=== PATIENT | male | born 1990 | race Caucasian/White ===

== ENCOUNTER 2018-04-25 14:39 | Emergency (ER) | payer MEDICAID, SELFPAY ==
[2018-04-25 14:55] VITALS: BP 123/64; PULSE 89; RESP 18; TEMP 37.3; O2SAT 99
--- NOTE | 2018-04-25 15:04 | DI.RAD.S_ITS ---
PROCEDURE: XR WRIST LT MIN 3V INDICATIONS: injured left wrist TECHNIQUE: 4 views of the wrist were acquired. COMPARISON: None. FINDINGS: Bones: Oblique left distal radial metaphysis fracture with intra-articular extension. No significant displacement or angulation. Scaphoid view: Scaphoid appears intact. Soft tissues: Soft tissue swelling overlying the left wrist. IMPRESSION: Acute left distal radial intra-articular fracture. Dictated by: Christopher Fay M.D. on 04/25/2018 at 15:26 Approved by: Christopher Fay M.D. on 04/25/2018 at 15:28
--- NOTE | 2018-04-25 15:32 | ED.UPPEXIN ---
HPI - Extremity Injury (Upper) General Chief Complaint: Extremity Injury, Upper Stated Complaint: left wrist pain Time Seen by Provider: 04/25/18 15:00 Source: patient Mode of arrival: ambulatory Limitations: no limitations History of Present Illness HPI narrative: 28M complains of L wrsit pain after falling while skateboarding yesterday. He has worsening pain with range of motion and improvement with rest. He denies other injury. He denies any numbness, tingling or weakness complaint: injury to: left Onset (ago): day(s) Other injuries: none Handedness: right Place: outdoors Severity: moderate Relieving factors: rest Exacerbating factors: movement of extremity Context: fall Associated symptoms: denies other symptoms Related Data Previous Rx's Medication Instructions Recorded hydrocodone-acetaminophen 1 tab PO Q4-6H PRN #14 tab 04/25/18 Allergies Allergy/AdvReac Type Severity Reaction Status Date / Time No Known Drug Allergies Allergy Verified 04/25/18 15:53 Review of Systems Review of Systems All systems reviewed & are unremarkable except as noted in HPI and below Constitutional Denies chills, Denies fever(s), Denies lethargy and Denies weakness Eyes Denies change in vision, Denies eye discharge, Denies irritation and Denies loss of vision ENT Ears, Nose, Mouth, and Throat: Denies change in voice, Denies neck pain and Denies sore throat Cardiovascular Denies chest pain, Denies irregular heart rhythm, Denies lightheadedness, Denies palpitations, Denies dyspnea, Denies dyspnea on exertion and Denies orthopnea Respiratory Denies cough, Denies dyspnea, Denies dyspnea on exertion and Denies wheezing Gastrointestinal Gastrointestinal: Denies abdominal pain, Denies change in bowel habits, Denies diarrhea, Denies nausea and Denies vomiting Genitourinary Denies hematuria, Denies flank pain, Denies urinary incontinence and Denies urinary urgency Musculoskeletal Reports limited range of motion and Denies neck pain Integumentary/Breasts Denies pruritus, Denies erythema, Denies rash and Denies wounds Neurologic Denies confusion, Denies loss of vision and Denies weakness Psychiatric Denies anxiety, Denies confusion, Denies depression, Denies homicidal ideation and Denies suicidal ideation Endocrine Denies palpitations Hematologic/Lymphatic Denies easy bruising Allergic/Immunologic Denies wheezing [facility] Social History Smoking Status: Former smoker Exam Narrative Exam Narrative: GEN: AOx3 and in mild distress EYES: Pupils are equal, round, and reactive to light and accommodation. Extraoccular muscles are intact bilaterally. There is no subconjunctival hemorrhage or exudate. CHEST: Lungs are clear to auscultation bilaterally and free of wheezes, rales, or rhonchi. Heart rate is regular rhythm, there are no murmurs, clicks, rubs, or gallops. There is no chest wall tenderness. ABD: Abdomen is soft and nontender. There is no guarding or rebound. Bowel sounds are normal in all 4 quadrants. There is no mass or organomegaly. EXT: Pain to palpation of left distal radius. Closed, isolated and neurovascularly intact. SKIN: Warm, pink, and dry. No erythema or rash Initial Vital Signs Initial Vital Signs: Vital Signs Temperature 99.2 F 04/25/18 14:55 Pulse Rate 89 04/25/18 14:55 Respiratory Rate 18 04/25/18 14:55 Blood Pressure 123/64 H 04/25/18 14:55 Pulse Oximetry 99 04/25/18 14:55 Procedures Orthopedic Splinting/Casting Injury #1: Side: left Upper Extremity Injury Location: forearm Upper Extremity Immobilizer: sling/shoulder immobilizer and sugar tong splint Course Orders Ordered: ED Orders 04/25/18 15:04 XR wrist LT min 3V Stat Vital Signs - 8 hr 04/25/18 14:55 04/25/18 16:04 Temperature 99.2 F Pulse Rate 89 85 Respiratory Rate 18 18 Blood Pressure 123/64 H 132/79 H Pulse Oximetry 99 98 Discharge Plan Departure Patient Disposition: Home, Self-Care Clinical Impression: Fracture of wrist Discharge Date/Time: 04/25/18 16:04 Interventions: ED Discharge Assessment Last Done: 04/25/18 16:04 Instructions: DI for Distal Radius Fracture Activity Restrictions/Additional Instructions: *You have been diagnosed with [ nondisplaced left distal radius fracture ] *What to do: *Take medications as directed. You have been prescribed narcotic medications. While on these medications you cannot drive or operate heavy machinery. Additionally you cannot sign legal documents or perform any duties such as this. 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 Please understand that we cannot provide further refills of narcotics or controlled substances through the ED and your pain management will need to be through your Primary Care Provider *Follow up with scheduled [facility], call for an appointment. Let them know you were seen in the Emergency Department and that we ask that you be seen in follow up *Return to ER if you should have any new, worsening or concerning symptoms, such as [increasing pain, numbness, tingling or other bothersome symptoms in her wrist ] Prescriptions: New hydrocodone-acetaminophen 5-325 mg tablet 1 tab PO Q4-6H PRN (Reason: pain) Qty: 14 RF: 0 Referrals: Cleo Montenegro MD [Physician] -
[2018-04-25 16:04] VITALS: BP 132/79; PULSE 85; RESP 18; O2SAT 98
--- NOTE | 2018-04-25 16:07 | PC.NURSE ---
splint verified by dr. basilio.
--- NOTE | 2018-04-25 18:10 | ED_ITS ---
HPI - Extremity Injury (Upper) General Chief Complaint: Extremity Injury, Upper Stated Complaint: left wrist pain Time Seen by Provider: 04/25/18 15:00 Source: patient Mode of arrival: ambulatory Limitations: no limitations History of Present Illness HPI narrative: 28M complains of L wrsit pain after falling while skateboarding yesterday. He has worsening pain with range of motion and improvement with rest. He denies other injury. He denies any numbness, tingling or weakness complaint: injury to: left Onset (ago): day(s) Other injuries: none Handedness: right Place: outdoors Severity: moderate Relieving factors: rest Exacerbating factors: movement of extremity Context: fall Associated symptoms: denies other symptoms Related Data Previous Rx's Medication Instructions Recorded hydrocodone-acetaminophen 1 tab PO Q4-6H PRN #14 tab 04/25/18 Allergies Allergy/AdvReac Type Severity Reaction Status Date / Time No Known Drug Allergies Allergy Verified 04/25/18 15:53 Review of Systems Review of Systems All systems reviewed & are unremarkable except as noted in HPI and below Constitutional Denies chills, Denies fever(s), Denies lethargy and Denies weakness Eyes Denies change in vision, Denies eye discharge, Denies irritation and Denies loss of vision ENT Ears, Nose, Mouth, and Throat: Denies change in voice, Denies neck pain and Denies sore throat Cardiovascular Denies chest pain, Denies irregular heart rhythm, Denies lightheadedness, Denies palpitations, Denies dyspnea, Denies dyspnea on exertion and Denies orthopnea Respiratory Denies cough, Denies dyspnea, Denies dyspnea on exertion and Denies wheezing Gastrointestinal Gastrointestinal: Denies abdominal pain, Denies change in bowel habits, Denies diarrhea, Denies nausea and Denies vomiting Genitourinary Denies hematuria, Denies flank pain, Denies urinary incontinence and Denies urinary urgency Musculoskeletal Reports limited range of motion and Denies neck pain Integumentary/Breasts Denies pruritus, Denies erythema, Denies rash and Denies wounds Neurologic Denies confusion, Denies loss of vision and Denies weakness Psychiatric Denies anxiety, Denies confusion, Denies depression, Denies homicidal ideation and Denies suicidal ideation Endocrine Denies palpitations Hematologic/Lymphatic Denies easy bruising Allergic/Immunologic Denies wheezing [facility] Social History Smoking Status: Former smoker Exam Narrative Exam Narrative: GEN: AOx3 and in mild distress EYES: Pupils are equal, round, and reactive to light and accommodation. Extraoccular muscles are intact bilaterally. There is no subconjunctival hemorrhage or exudate. CHEST: Lungs are clear to auscultation bilaterally and free of wheezes, rales, or rhonchi. Heart rate is regular rhythm, there are no murmurs, clicks, rubs, or gallops. There is no chest wall tenderness. ABD: Abdomen is soft and nontender. There is no guarding or rebound. Bowel sounds are normal in all 4 quadrants. There is no mass or organomegaly. EXT: Pain to palpation of left distal radius. Closed, isolated and neurovascularly intact. SKIN: Warm, pink, and dry. No erythema or rash Initial Vital Signs Initial Vital Signs: Vital Signs Temperature 99.2 F 04/25/18 14:55 Pulse Rate 89 04/25/18 14:55 Respiratory Rate 18 04/25/18 14:55 Blood Pressure 123/64 H 04/25/18 14:55 Pulse Oximetry 99 04/25/18 14:55 Procedures Orthopedic Splinting/Casting Injury #1: Side: left Upper Extremity Injury Location: forearm Upper Extremity Immobilizer: sling/shoulder immobilizer and sugar tong splint Course Orders Ordered: ED Orders 04/25/18 15:04 XR wrist LT min 3V Stat Vital Signs - 8 hr 04/25/18 14:55 04/25/18 16:04 Temperature 99.2 F Pulse Rate 89 85 Respiratory Rate 18 18 Blood Pressure 123/64 H 132/79 H Pulse Oximetry 99 98 Discharge Plan Departure Patient Disposition: Home, Self-Care Clinical Impression: Fracture of wrist Discharge Date/Time: 04/25/18 16:04 Interventions: ED Discharge Assessment Last Done: 04/25/18 16:04 Instructions: DI for Distal Radius Fracture Activity Restrictions/Additional Instructions: *You have been diagnosed with [ nondisplaced left distal radius fracture ] *What to do: *Take medications as directed. You have been prescribed narcotic medications. While on these medications you cannot drive or operate heavy machinery. Additionally you cannot sign legal documents or perform any duties such as this. 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 Please understand that we cannot provide further refills of narcotics or controlled substances through the ED and your pain management will need to be through your Primary Care Provider *Follow up with scheduled [facility], call for an appointment. Let them know you were seen in the Emergency Department and that we ask that you be seen in follow up *Return to ER if you should have any new, worsening or concerning symptoms , such as [increasing pain, numbness, tingling or other bothersome symptoms in her wrist ] Prescriptions: New hydrocodone-acetaminophen 5-325 mg tablet 1 tab PO Q4-6H PRN (Reason: pain) Qty: 14 RF: 0 Referrals: Cleo Montenegro MD [Physician] -
== END 2018-04-25 16:04 | disposition home or self-care (01) ==
PROVIDERS: Emergency Provider Emergency Medicine
DX: S62.102A Fracture of unspecified carpal bone, left wrist, initial encounter for closed fracture (principal); V00.131A Fall from skateboard, initial encounter; Y93.51 Activity, roller skating (inline) and skateboarding
CPT/HCPCS: 29125; 29240; 73110; 99282; 99283

== ENCOUNTER 2024-11-18 03:58 | Emergency (ER) | payer OTHER, SELFPAY ==
[2024-11-18] VITALS (13 sets, daily range): BP systolic 112–141; BP diastolic 66–92; PULSE 52–69; RESP 17–18; TEMP 37.3; O2SAT 92–100; BMI 22.6
--- NOTE | 2024-11-18 04:03 | ED_ITS ---
HPI - General Adult <Dylan Toledo MD - Last Filed: 11/18/24 16:32> General Chief complaint: Headache Stated complaint: head pain Time Seen by Provider: 11/18/24 03:59 History of Present Illness HPI narrative: 34-year-old male with history of skateboarding related head injury on Thursday11/11/2024 in [place], had imaging of the brain was intubated and was transferred to [facility], by ground instead of air ambulance due to poor weather, while at [facility] had continued pain and seemed unsatisfied with care there due to his perception a poor pain control, left against medical advice, unclear if he had any surgical interventions besides scalp wound closure. He has no primary care provider, has ongoing headache pain not responsive to Tylenol and Motrin medications. He arrived by EMS with headache pain this morning, given IV fentanyl 100 mcg during transport. Complains of left-sided predominant headache pain. No new injuries recalled. Related Data Previous Rx's Medication Instructions Recorded hydrocodone 5 mg-acetaminophen 325 1 tab PO Q4-6H PRN pain #14 tabs 04/25/18 mg tablet naproxen 500 mg tablet (Naprosyn) 500 mg PO BID #60 tabs 11/18/24 oxycodone 5 mg tablet 5 mg PO Q6H PRN pain #30 tabs 11/18/24 valproic acid 250 mg capsule 500 mg (2 x 250 mg) PO TID #180 11/18/24 caps Allergies Allergy/AdvReac Type Severity Reaction Status Date / Time bee venom protein (honey bee) Allergy Verified 11/18/24 04:08 Patient History <Dylan Toledo MD - Last Filed: 11/18/24 16:32> Social History Smoking Status: Former smoker Smoking Status: Former smoker alcohol intake frequency: holidays/special occasions only Exam <Dylan Toledo MD - Last Filed: 11/18/24 16:32> Narrative Exam Narrative: GENERAL: Well-developed patient, in mild distress. HEAD: Occipital scalp laceration leonides x3 intact, no crepitance or discharge or redness around the wound. EYES: Pupils equal round and reactive. Extraocular motions intact. No scleral icterus. No injection or drainage. ENT: Nose without bleeding, purulent drainage. Throat without erythema, tonsillar hypertrophy or exudate. Airway patent. NECK: Trachea midline. Non tender CARDIOVASCULAR: Regular rate and rhythm without murmurs, gallops, or rubs. RESPIRATORY: Clear to auscultation. Breath sounds equal bilaterally. No wheezes, rales, or rhonchi. GASTROINTESTINAL: Abdomen soft, non-tender, nondistended. EXTREMITIES: No edema or joint tenderness. BACK: Nontender without deformity or crepitance. No flank tenderness. NEURO: AOx3. No facial droop, pupils equal, clear speech, control secretions well, conjugate gaze. Motor 5/5 upper extremities. Motor 5/5 lower extremities. [id number] testing right and left equal and brisk. Intact light touch sensation face arm leg both sides. Gait not yet tested, but reportedly has been ambulatory since discharge home. SKIN: No rash or erythema of visible areas Initial Vital Signs Initial Vital Signs: Vital Signs Pulse Rate 66 11/18/24 04:04 Pulse Oximetry 98 11/18/24 04:04 <Karina Hi MD - Last Filed: 11/18/24 11:04> Initial Vital Signs Initial Vital Signs: Vital Signs Pulse Rate 66 11/18/24 04:04 Pulse Oximetry 98 11/18/24 04:04 Course <Dylan Toledo MD - Last Filed: 11/18/24 16:32> Orders Ordered: Discontinued Medications Droperidol (Droperidol 2.5 Mg/Ml Vial) 0.625 mg IV NOW ONE Stop: 11/18/24 08:42 Last Admin: 11/18/24 08:50 Dose: 0.625 mg Documented By: MPO Hydromorphone HCl (Hydromorphone 0.5 Mg Inj) 0.5 mg IV NOW ONE Stop: 11/18/24 04:58 Last Admin: 11/18/24 05:05 Dose: 0.5 mg Documented By: HNG Hydromorphone HCl (Hydromorphone 0.5 Mg Inj) 0.5 mg IV NOW ONE Stop: 11/18/24 08:42 Last Admin: 11/18/24 08:50 Dose: 0.5 mg Documented By: MPO Valproic Acid 1,500 mg/ (Dextrose) 65 mls @ 65 mls/hr IV NOW ONE Stop: 11/18/24 08:21 Last Infusion: 11/18/24 10:03 Dose: Infused Documented By: Admin: 11/18/24 08:50 Dose: 65 mls/hr Documented By: ISHAN Sodium Chloride (Normal Saline 0.9%) 1,000 mls @ 1,000 mls/hr IV BOLUS ONE Stop: 11/18/24 09:40 Last Infusion: 11/18/24 10:03 Dose: Infused Documented By: Admin: 11/18/24 08:51 Dose: 1,000 mls/hr Documented By: ISHAN Ketorolac Tromethamine (Ketorolac 30 Mg/Ml Vial) 15 mg IV NOW ONE Stop: 11/18/24 04:19 Last Admin: 11/18/24 04:34 Dose: 15 mg Documented By: SHELIA Ondansetron HCl (Ondansetron 4 Mg/2 Ml Inj) 4 mg IV NOW ONE Stop: 11/18/24 04:58 Last Admin: 11/18/24 05:05 Dose: 4 mg Documented By: BRISA Oxycodone/Acetaminophen (Oxycodone/Acetaminophen 5/325 Tablet) 2 tab PO NOW ONE Stop: 11/18/24 09:43 Last Admin: 11/18/24 09:49 Dose: 2 tab Documented By: ISHAN Vital Signs Vital signs: Vital Signs - 8 hr 11/18/24 04:04 11/18/24 04:09 11/18/24 04:33 Temperature 99.2 F Pulse Rate 66 63 58 L Respiratory Rate 18 Blood Pressure 141/92 H Pulse Oximetry 98 99 100 Oxygen Delivery Method Room Air 11/18/24 04:34 11/18/24 04:34 11/18/24 05:00 Temperature Pulse Rate 58 L 57 L Respiratory Rate Blood Pressure 139/71 Pulse Oximetry 99 99 Oxygen Delivery Method 11/18/24 05:09 11/18/24 05:09 11/18/24 05:30 Temperature Pulse Rate 57 L Respiratory Rate Blood Pressure 119/74 122/74 Pulse Oximetry 99 Oxygen Delivery Method Room Air 11/18/24 05:30 11/18/24 06:00 11/18/24 06:00 Temperature Pulse Rate 65 69 Respiratory Rate 17 Blood Pressure 123/76 Pulse Oximetry 99 99 Oxygen Delivery Method Room Air 11/18/24 06:30 11/18/24 06:30 11/18/24 07:00 Temperature Pulse Rate 57 L 53 L Respiratory Rate Blood Pressure 112/66 Pulse Oximetry 98 93 Oxygen Delivery Method 11/18/24 07:01 11/18/24 07:01 11/18/24 07:30 Temperature Pulse Rate 53 L 52 L Respiratory Rate Blood Pressure 129/68 Pulse Oximetry 97 95 Oxygen Delivery Method 11/18/24 07:30 11/18/24 08:00 11/18/24 08:00 Temperature Pulse Rate 53 L Respiratory Rate Blood Pressure 123/80 129/69 Pulse Oximetry 92 Oxygen Delivery Method <Karina Hi MD - Last Filed: 11/18/24 11:04> Orders Ordered: Discontinued Medications Droperidol (Droperidol 2.5 Mg/Ml Vial) 0.625 mg IV NOW ONE Stop: 11/18/24 08:42 Last Admin: 11/18/24 08:50 Dose: 0.625 mg Documented By: ISHAN Hydromorphone HCl (Hydromorphone 0.5 Mg Inj) 0.5 mg IV NOW ONE Stop: 11/18/24 04:58 Last Admin: 11/18/24 05:05 Dose: 0.5 mg Documented By: BRISA Hydromorphone HCl (Hydromorphone 0.5 Mg Inj) 0.5 mg IV NOW ONE Stop: 11/18/24 08:42 Last Admin: 11/18/24 08:50 Dose: 0.5 mg Documented By: ISHAN Valproic Acid 1,500 mg/ (Dextrose) 65 mls @ 65 mls/hr IV NOW ONE Stop: 11/18/24 08:21 Last Infusion: 11/18/24 10:03 Dose: Infused Documented By: Admin: 11/18/24 08:50 Dose: 65 mls/hr Documented By: ISHAN Sodium Chloride (Normal Saline 0.9%) 1,000 mls @ 1,000 mls/hr IV BOLUS ONE Stop: 11/18/24 09:40 Last Infusion: 11/18/24 10:03 Dose: Infused Documented By: Admin: 11/18/24 08:51 Dose: 1,000 mls/hr Documented By: ISHAN Ketorolac Tromethamine (Ketorolac 30 Mg/Ml Vial) 15 mg IV NOW ONE Stop: 11/18/24 04:19 Last Admin: 11/18/24 04:34 Dose: 15 mg Documented By: SHELIA Ondansetron HCl (Ondansetron 4 Mg/2 Ml Inj) 4 mg IV NOW ONE Stop: 11/18/24 04:58 Last Admin: 11/18/24 05:05 Dose: 4 mg Documented By: BRISA Oxycodone/Acetaminophen (Oxycodone/Acetaminophen 5/325 Tablet) 2 tab PO NOW ONE Stop: 11/18/24 09:43 Last Admin: 11/18/24 09:49 Dose: 2 tab Documented By: ISHAN Vital Signs Vital signs: Vital Signs - 8 hr 11/18/24 04:04 11/18/24 04:09 11/18/24 04:33 Temperature 99.2 F Pulse Rate 66 63 58 L Respiratory Rate 18 Blood Pressure 141/92 H Pulse Oximetry 98 99 100 Oxygen Delivery Method Room Air 11/18/24 04:34 11/18/24 04:34 11/18/24 05:00 Temperature Pulse Rate 58 L 57 L Respiratory Rate Blood Pressure 139/71 Pulse Oximetry 99 99 Oxygen Delivery Method 11/18/24 05:09 11/18/24 05:09 11/18/24 05:30 Temperature Pulse Rate 57 L Respiratory Rate Blood Pressure 119/74 122/74 Pulse Oximetry 99 Oxygen Delivery Method Room Air 11/18/24 05:30 11/18/24 06:00 11/18/24 06:00 Temperature Pulse Rate 65 69 Respiratory Rate 17 Blood Pressure 123/76 Pulse Oximetry 99 99 Oxygen Delivery Method Room Air 11/18/24 06:30 11/18/24 06:30 11/18/24 07:00 Temperature Pulse Rate 57 L 53 L Respiratory Rate Blood Pressure 112/66 Pulse Oximetry 98 93 Oxygen Delivery Method 11/18/24 07:01 11/18/24 07:01 11/18/24 07:30 Temperature Pulse Rate 53 L 52 L Respiratory Rate Blood Pressure 129/68 Pulse Oximetry 97 95 Oxygen Delivery Method 11/18/24 07:30 11/18/24 08:00 11/18/24 08:00 Temperature Pulse Rate 53 L Respiratory Rate Blood Pressure 123/80 129/69 Pulse Oximetry 92 Oxygen Delivery Method Medical Decision Making <Dylan Toledo MD - Last Filed: 11/18/24 16:32> Lab Data Lab results reviewed: Yes I reviewed the patient's lab results. Lab results narrative: White blood cell count 86900, hemoglobin 13.4, platelets adequate. Basic metabolic panel unremarkable, glucose 88 noted. Liver functions normal. 11/18/24 04:03 11/18/24 04:03 Labs: Lab Results 11/18/24 Range/Units 04:03 WBC 13.7 H (4.5-11.0) X10^3/uL RBC 4.29 L (4.5-5.9) X10^6/uL Hgb 13.4 L (13.5-17.5) g/dL Hct 38.9 L (41-53) % MCV 90.7 (80-100) fL MCH 31.4 (26-34) PG MCHC 34.6 (30-36) % RDW 12.9 (11.6-14.8) % Plt Count 169 (150-400) X10^3/uL Neut % (Auto) 73.4 (50-75) % Lymph % (Auto) 18.6 L (25-40) % Rice % (Auto) 6.3 (3-14) % Eos % (Auto) 1.2 L (2-4) % Baso % (Auto) 0.5 (0-2) % Neut # (Auto) 67796 H (6926-2394) /uL Lymph # (Auto) 2600 (6898-9524) /uL Rice # (Auto) 900 (0-900) /uL Eos # (Auto) 200 (0-450) /uL Baso # (Auto) 100 (0-100) /uL Sodium 136 L (137-145) mmol/L Potassium 3.6 (3.4-5.1) mmol/L Chloride 100 (98-107) mmol/L Carbon Dioxide 27 (22-32) mmol/L BUN 12 (9-20) mg/dL Creatinine 0.81 (0.66-1.25) mg/dL Estimated GFR > 60 (>60) mL/min BUN/Creatinine Ratio 14.8 (6-22) Glucose 88 (70-100) mg/dL Calcium 9.1 (8.4-10.2) mg/dL Total Bilirubin 0.4 (0.2-1.3) mg/dL AST 21 (17-59) IU/L ALT 25 (<50) IU/L Alkaline Phosphatase 38 (38-126) U/L Total Protein 7.0 (6.3-8.2) g/dL Albumin 4.4 (3.5-5.0) g/dL Globulin 2.6 (1.7-4.1) g/dL Albumin/Globulin Ratio 1.7 (1.0-2.8) MDM Narrative Medical decision making narrative: 34-year-old male now 7 days after skateboard injury with subdural hematoma and subarachnoid hemorrhage, in context of alcohol use, on 11/12/2024 at [facility] in [facility] was intubated and transferred to [facility]. Patient believes he left against medical advice on Thursday11/16/2024, did not feel like he was being treated well there, left without discharge instruction or information, does not recall any new medications, had leonides from the initial treating facility they are still in the back of his head now one-week ago. Has global headache. No re-injury. No focal weakness. CT head scan ordered, patient seems cooperative to do this scan. He did allow blood draw, labs sent. Sodium [address] head without contrast. Impressions: ?Subarachnoid hemorrhage along the falx cerebri and tracking along the bilateral tentorium, [id number]. It measures approximately 3 mm in greatest dimension along the falx in the right tentorium, submillimeter along the left tentorium. Multiple punctate foci of high attenuation blood products seen along the anterior aspect of the right frontal lobe with surrounding edema reflecting small areas of contusion or hemorrhage. This is probably related to a contrecoup injury given the high left scalp soft tissue injury. The associated edema causes a small amount of leftward midline shift of to 3 mm. A small amount of high attenuation products interdigitating the in the sulci at this region as well as in the sylvian fissure reflecting a small amount of associated subarachnoid hemorrhage. No hydrocephalus.? See teleradiology report. No mention of any comparison studies. Occipital scalp laceration site leonides removed intact by nursing x3. 0515, Case discussed with [facility] nursing intake, no records so far from [facility] prevously requested, per intake nurse patient apparently extubated himself shortly prior to arrival to their facility, was not cooperative per their progress notes with repeated lab draws, no neurosurgical interventions. He had low sodium level and was advised to have salt pills on discharge, also was to be prescribed Keppra for one-week at time of discharge, but precipitously left their facility without any discharge prescription medications. Scalp laceration leonides were to be removed on 11/25/2024. Intake nurse aware of new CT scan here, will consult with Neurosurgery to review current scan in comparison with their scans, and any new recommendations, and recommendations for follow up. Patient given [facility] PCP contact card information to establish with an [facility] primary care provider, to call [facility] at [phone]. Or follow-up with PCP in [facility] area where he might be staying with family. 0700, still awaiting call back from [facility] Neurosurgery for comparison interpretation and recommendations. Signed out to [facility] ED shift physician Dr. Hi 0700 Dr Hi, care is assumed patient is independently evaluated. I had the opportunity to see this gentleman with his initial injury and transfer to [facility]. He is dramatically improved. His CT scan is also significantly improved. I chatted with the neurosurgeon, Dr. Rodriguez who cared for him at [facility]. She to agree that the repeat CT scan does not show new findings. Recommended at least a week of antiseizure medications. Offered to re-evaluate him if he wanted to come to [place]. Discussed all the findings with the patient. Discussed options for outpatient pain control. Additional social history, patient works at the [employer] and undergoes regular drug testing for work. He rarely drinks alcohol. He has not had issues with addiction Will load him on valproic acid for seizure control and see if there was any secondary benefit to headache control/prevention. Prescription for 500 mg 3 times a day we will be sent to [facility] in [place] with recommendation that he take it for at least a week, prescription for a month with 1 refill so that he can continue in his long as he is continuing to have headaches and discontinuous headaches improve as his brain swelling and contusion improves. We will recommend scheduled Naprosyn b.i.d., Tylenol as needed through the day with a short course of oxycodone for severe pain along with cautions and concerns. will also be given information on postconcussion syndrome. We will recommend follow up with primary care physician and he is given information to call for an appointment in an open practice in [place]. He may benefit from eventual neurologic referral if he does end up having chronic headaches. All these findings reviewed with the patient and he is agreeable. Did offer the possibility of staying in the hospital to help with his intractable headache pain and he does not want to proceed with this <Karina Hi MD - Last Filed: 11/18/24 11:04> Lab Data Labs: Lab Results 11/18/24 Range/Units 04:03 WBC 13.7 H (4.5-11.0) X10^3/uL RBC 4.29 L (4.5-5.9) X10^6/uL Hgb 13.4 L (13.5-17.5) g/dL Hct 38.9 L (41-53) % MCV 90.7 (80-100) fL MCH 31.4 (26-34) PG MCHC 34.6 (30-36) % RDW 12.9 (11.6-14.8) % Plt Count 169 (150-400) X10^3/uL Neut % (Auto) 73.4 (50-75) % Lymph % (Auto) 18.6 L (25-40) % Rice % (Auto) 6.3 (3-14) % Eos % (Auto) 1.2 L (2-4) % Baso % (Auto) 0.5 (0-2) % Neut # (Auto) 90908 H (0265-8747) /uL Lymph # (Auto) 2600 (0833-2320) /uL Rice # (Auto) 900 (0-900) /uL Eos # (Auto) 200 (0-450) /uL Baso # (Auto) 100 (0-100) /uL Sodium 136 L (137-145) mmol/L Potassium 3.6 (3.4-5.1) mmol/L Chloride 100 (98-107) mmol/L Carbon Dioxide 27 (22-32) mmol/L BUN 12 (9-20) mg/dL Creatinine 0.81 (0.66-1.25) mg/dL Estimated GFR > 60 (>60) mL/min BUN/Creatinine Ratio 14.8 (6-22) Glucose 88 (70-100) mg/dL Calcium 9.1 (8.4-10.2) mg/dL Total Bilirubin 0.4 (0.2-1.3) mg/dL AST 21 (17-59) IU/L ALT 25 (<50) IU/L Alkaline Phosphatase 38 (38-126) U/L Total Protein 7.0 (6.3-8.2) g/dL Albumin 4.4 (3.5-5.0) g/dL Globulin 2.6 (1.7-4.1) g/dL Albumin/Globulin Ratio 1.7 (1.0-2.8) MDM Narrative Medical decision making narrative: 34-year-old male now 7 days after skateboard injury with subdural hematoma and subarachnoid hemorrhage, in context of alcohol use, on 11/12/2024 at [facility] in [facility] was intubated and transferred to [facility]. Patient believes he left against medical advice on Thursday11/16/2024, did not feel like he was being treated well there, left without discharge instruction or information, does not recall any new medications, had leonides from the initial treating facility they are still in the back of his head now one-week ago. Has global headache. No re-injury. No focal weakness. CT head scan ordered, patient seems cooperative to do this scan. He did allow blood draw, labs sent. Sodium [address] head without contrast. Impressions: ?Subarachnoid hemorrhage along the falx cerebri and tracking along the bilateral tentorium, [id number]-left. It measures approximately 3 mm in greatest dimension along the falx in the right tentorium, submillimeter along the left tentorium. Multiple punctate foci of high attenuation blood products seen along the anterior aspect of the right frontal lobe with surrounding edema reflecting small areas of contusion or hemorrhage. This is probably related to a contrecoup injury given the high left scalp soft tissue injury. The associated edema causes a small amount of leftward midline shift of to 3 mm. A small amount of high attenuation products interdigitating the in the sulci at this region as well as in the sylvian fissure reflecting a small amount of associated subarachnoid hemorrhage. No hydrocephalus.? See teleradiology report. No mention of any comparison studies. Occipital scalp laceration site leonides removed intact by nursing x3. 0515, Case discussed with [facility] nursing intake, no records from [facility] requested, per intake nurse patient apparently extubated himself shortly prior to arrival to their facility, was not cooperative per their progress notes with repeated lab draws, no neurosurgical intervention so there was consultation. He had low sodium level and was advised to have salt pills on discharge, also was to be prescribed Keppra for one-week at time of discharge, but left precipitously left without any discharge prescription medications. Scalp laceration leonides were to be removed on 11/25/2024. Intake nurse aware of new CT scan here, will consult with Neurosurgery to review current scan in comparison with their scans, and any new recommendations, and recommendations for follow up. Patient given [facility] PCP contact card information to establish with an [facility] primary care provider, to call [facility] at [phone]. Or follow-up with PCP in [facility] area where he might be staying with family. 0700, still awaiting call back from [facility] Neurosurgery for comparison interpretation and recommendations. Signed out to [facility] ED shift physician Dr. Hi 0700 Dr Hi, care is assumed patient is independently evaluated. I had the opportunity to see this gentleman with his initial injury and transfer to [facility]. He is dramatically improved. His CT scan is also significantly improved. I chatted with the neurosurgeon, Dr. Rodriguez who cared for him at [facility]. She to agree that the repeat CT scan does not show new findings. Recommended at least a week of antiseizure medications. Offered to re-evaluate him if he wanted to come to [place]. Discussed all the findings with the patient. Discussed options for outpatient pain control. Additional social history, patient works at the [employer] and undergoes regular drug testing for work. He rarely drinks alcohol. He has not had issues with addiction Will load him on valproic acid for seizure control and see if there was any secondary benefit to headache control/prevention. Prescription for 500 mg 3 times a day we will be sent to [facility] in [place] with recommendation that he take it for at least a week, prescription for a month with 1 refill so that he can continue in his long as he is continuing to have headaches and discontinuous headaches improve as his brain swelling and contusion improves. We will recommend scheduled Naprosyn b.i.d., Tylenol as needed through the day with a short course of oxycodone for severe pain along with cautions and concerns. will also be given information on postconcussion syndrome. We will recommend follow up with primary care physician and he is given information to call for an appointment in an open practice in [place]. He may benefit from eventual neurologic referral if he does end up having chronic headaches. All these findings reviewed with the patient and he is agreeable. Did offer the possibility of staying in the hospital to help with his intractable headache pain and he does not want to proceed with this Discharge Plan Departure Patient Disposition: Home Clinical Impression: History of subdural hematoma Headache Qualifiers: Headache type: other headache syndrome Qualified Code(s): G44.89 - Other headache syndrome Traumatic brain injury Qualifiers: Encounter type: sequela Loss of consciousness presence/duration: with LOC of 30 min or less Qualified Code(s): S06.9X1S - Unspecified intracranial injury with loss of consciousness of 30 minutes or less, sequela Traumatic subarachnoid hematoma with loss of consciousness Qualifiers: Encounter type: subsequent encounter Qualified Code(s): S06.6X9D - Traumatic subarachnoid hemorrhage with loss of consciousness of unspecified duration, subsequent encounter Instructions: Closed Head Injury, DI for Postconcussion Syndrome, DI for Subdural Hematoma Activity Restrictions/Additional Instructions: Thank you for coming in today You had a significant traumatic brain injury with bleeding around your brain, bruising in your brain and bleeding underneath the superficial covering of your brain. This is going to take some time to heal. The headaches are because of the swelling. Your CT scan today looks significantly better than it did with the initial injury. There was no new bleeding. With the increased swelling in your brain your risk for having a seizure is significantly increased. You need to avoid hitting your head again, any alcohol or recreational drugs and if you are considering taking additional medications make sure that they do not increase your risk for a seizure Regarding overall pain control: In the emergency department I gave you valproic acid. This is actually a seizure prevention medication. It is also medication we use to help prevent migraine headache. You need to take it for at least 1 week after you leave the ER today for seizure prevention. I am giving you a 2 month prescription. You can continue to take it if it is helping to control your headaches. For baseline headache control I would recommend taking naproxen 500 mg twice a day, I have given you a 2 month prescription for this. This is very similar to ibuprofen. Do not take additional ibuprofen, Motrin, Advil, Alleve For pain that is breaking through this combination, you can use 2 extra-strength Tylenol, the maximum Tylenol is 8 in a 24 hour period For continued severe pain I am going to give you a prescription for oxycodone. This is a narcotic, we will cause constipation and this has a high potential for addiction in this setting. Typically, narcotics are not helpful with standard headaches or migraine pain. Because your pain is due to trauma and bleeding, it can be helpful for a very brief period. If you are drug tested at work, this will show up on the drug testing, make sure you keep this documentation. You need to find a primary care physician. If you do not have 1 you can contact [facility] at [phone] for a list of providers accepting new patients. Potential for chronic headaches after this brain injury is real. You may need neurologic consultation which would need to be started by your primary care physician If you find that you are getting worse or develop any new symptoms, please feel free to return to the emergency department for further evaluation. Prescriptions: New valproic acid 250 mg capsule 500 mg PO TID Qty: 180 1RF naproxen [Naprosyn] 500 mg tablet 500 mg PO BID Qty: 60 1RF oxycodone 5 mg tablet 5 mg PO Q6H PRN (Reason: pain) Qty: 30 0RF No Action hydrocodone-acetaminophen 5-325 mg tablet 1 tab PO Q4-6H PRN (Reason: pain) Qty: 14 0RF Stand Alone Forms: Patient Portal/API/Survey
--- NOTE | 2024-11-18 04:13 | DI.CT.S_ITS ---
PROCEDURE: CT HEAD/BRAIN WO CON INDICATIONS: headache TECHNIQUE: Noncontrast 4.5 mm thick angled axial sections acquired from the foramen magnum to the vertex, with coronal and sagittal reformats. For radiation dose reduction, the following was used: automated exposure control, adjustment of mA and/or kV according to patient size. COMPARISON: [facility], CT, CT HEAD WITHOUT CONTRAST, 11/12/2024, 8:35. FINDINGS: Image quality: Diagnostic. CSF spaces: Basal cisterns are patent. Redemonstration of subdural hematoma along the posterior falx extending to the right tentorium.. Ventricles are normal in size and shape. Brain: Hemorrhagic contusion involving the anterior aspect of the right anterior temporal lobe and inferior frontal lobe which appears more pronounced than prior, likely secondary to evolving contusion. There is small associated subdural blood product. Edema results in 3 millimeters of leftward midline shift. There is associated subarachnoid hemorrhage. Skull and face: Calvarium and visualized facial bones are intact, without suspicious lesions. Scalp sutures on the left near the vertex. Sinuses: Visualized sinuses and mastoids are clear. IMPRESSION: Evolving hemorrhagic contusion involving the anterior right temporal lobe and inferior right frontal lobe. The hypodensities increased compared to prior which likely represents expected evolution. There is associated subarachnoid hemorrhage and likely a small subdural component. Recommend continued follow-up head CTs. Edema from these injuries results in approximately 3 millimeters of leftward midline shift. Small subdural along the posterior falx and right tentorial leaflet are similar compared to prior measuring up to 3 millimeters in thickness. Findings are concordant with preliminary interpretation provided by [facility]. Dictated by: Mario Alberto Bello M.D. on 11/18/2024 at 8:10 Approved by: Mario Alberto Bello M.D. on 11/18/2024 at 8:17
[2024-11-18] MEDS: KETOROLAC 30 MG/ML VIAL 15 MG IV (04:34)
[2024-11-18 04:37] LABS: Add Manual Diff / Slide Review NO; Basophils Absolute Auto 100 /uL (0-100); Basophils Percent Auto 0.5 % (0-2); Eosinophils Absolute Auto 200 /uL (0-450); Eosinophils Percent Auto 1.2 % (2-4); Hematocrit 38.9 % (41-53); Hemoglobin 13.4 g/dL (13.5-17.5); Lymphocytes Absolute Auto 2600 /uL (1100-4500); Lymphocytes Percent Auto 18.6 % (25-40); Mean Corpuscular HGB Conc 34.6 % (30-36); Mean Corpuscular Hemoglobin 31.4 PG (26-34); Mean Corpuscular Volume 90.7 fL (80-100); Monocytes Absolute Auto 900 /uL (0-900); Monocytes Percent Auto 6.3 % (3-14); Neutrophils Absolute Auto 10100 /uL (1500-7000); Neutrophils Percent Auto 73.4 % (50-75); Platelet Count 169 X10^3/uL (150-400); Red Blood Cell Count 4.29 X10^6/uL (4.5-5.9); Red Cell Distribution Width 12.9 % (11.6-14.8); White Blood Cell Count 13.7 X10^3/uL (4.5-11.0)
[2024-11-18 04:47] LABS: Alanine Aminotransferase 25 IU/L (<50); Albumin 4.4 g/dL (3.5-5.0); Albumin Globulin Ratio 1.7 (1.0-2.8); Alkaline Phosphatase 38 U/L (38-126); Aspartate Aminotransferase 21 IU/L (17-59); BUN Creatinine Ratio 14.8 (6-22); Bilirubin Total 0.4 mg/dL (0.2-1.3); Blood Urea Nitrogen 12 mg/dL (9-20); Calcium 9.1 mg/dL (8.4-10.2); Carbon Dioxide 27 mmol/L (22-32); Chloride 100 mmol/L (98-107); Estimated Glomerular Filt Rate > 60 mL/min (>60); Globulin 2.6 g/dL (1.7-4.1); Glucose 88 mg/dL (70-100); HEMOLYSIS < 15 (0-50); Potassium 3.6 mmol/L (3.4-5.1); Sodium 136 mmol/L (137-145)
[2024-11-18] MEDS: ONDANSETRON 4 MG/2 ML INJ IV (05:05)
[2024-11-18] MEDS: HYDROMORPHONE 0.5 MG INJ IV ×2 (05:05→08:50)
--- NOTE | 2024-11-18 05:10 | PC.NURSE ---
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 Spoke with Wilbur. Wilbur will page neurosurgery for us.
[2024-11-18] MEDS: droPERidol 2.5 MG/ML VIAL 0.625 MG IV (08:50)
[2024-11-18] MEDS: VALPROIC ACID IV (08:50)
[2024-11-18] MEDS: WATER IV (08:50)
[2024-11-18] MEDS: DEXTROSE 5% IV (08:50)
[2024-11-18] MEDS: SODIUM CHLORIDE 0.9% 1,000 ML 1000 ML IV (08:51)
[2024-11-18] MEDS: OXYCODONE/ACETAMINOPHEN 5/325 TABLET 2 TAB PO (09:49)
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
--- NOTE | 2024-11-18 11:18 | PC.NURSE ---
0800 Primary trauma survey not done as this RN (Evangelina Najera) not here for pt arrival via EMS 11/17/2024. Assumed care of pt at 0730.
== END 2024-11-18 11:20 | disposition home or self-care (01) ==
PROVIDERS: Emergency Medicine; Emergency Provider Emergency Medicine
DX: S06.6X9D Traumatic subarachnoid hemorrhage with loss of consciousness of unspecified duration, subsequent encounter (principal); S06.9X1S Unspecified intracranial injury with loss of consciousness of 30 minutes or less, sequela; G44.309 Post-traumatic headache, unspecified, not intractable; F07.81 Postconcussional syndrome; Z87.891 Personal history of nicotine dependence
CPT/HCPCS: 70450; 80053; 85025; 96365; 96375; 96376; 99284; 99285; J1171; J1790; J1885; J2405

== ENCOUNTER 2024-11-24 08:52 | Emergency (ER) | payer OTHER, SELFPAY ==
[2024-11-24] VITALS (7 sets, daily range): BP systolic 121–137; BP diastolic 64–87; PULSE 90–98; RESP 20–22; TEMP 36.6; O2SAT 97–100; BMI 24.2
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
[2024-11-24] MEDS: IBUPROFEN 400 MG TABLET 800 MG PO (09:27)
== END 2024-11-24 11:24 | disposition home or self-care (01) ==
PROVIDERS: Emergency Provider Emergency Medicine
DX: S06.9X1D Unspecified intracranial injury with loss of consciousness of 30 minutes or less, subsequent encounter (principal); G44.89 Other headache syndrome
CPT/HCPCS: 99283

== ENCOUNTER → 2024-12-17 13:56 | Outpatient (CLI) | payer OTHER, SELFPAY ==
--- NOTE | 2024-12-17 13:58 | DI.CT.S_ITS ---
PROCEDURE: CT HEAD/BRAIN WO CON INDICATIONS: head injury TECHNIQUE: Noncontrast 4.5 mm thick angled axial sections acquired from the foramen magnum to the vertex, with coronal and sagittal reformats. For radiation dose reduction, the following was used: automated exposure control, adjustment of mA and/or kV according to patient size. COMPARISON: [facility], CT, CT HEAD/BRAIN WO CON, 11/18/2024, 4:18. FINDINGS: Image quality: Diagnostic CSF spaces: Basal cisterns appear patent. Minimal leftward midline shift at 1-2 mm slightly decreased. Lateral ventricles are symmetric. Volume: Generally maintained. Brain: Right frontal temporal hemorrhagic contusion with moderate degree of edema again seen, slightly decreased. Interval slight decrease in intraparenchymal and extra-axial blood products. The falx and tentorial hemorrhage is also slightly decreased. Craniofacial structures: No significant paranasal sinus opacity. IMPRESSION: Left frontal temporal hemorrhagic contusion with slightly decreased edema, intraparenchymal, and adjacent extra-axial hemorrhage. Leftward midline shift is slightly decreased as well. Overall basal cisterns are patent. Continue follow-up is suggested until resolution. Dictated by: Shaheen Toro M.D. on 12/17/2024 at 19:37 Approved by: Shaheen Toro M.D. on 12/17/2024 at 19:41
== END ==
PROVIDERS: PCP Internal Medicine; Referring Provider Internal Medicine; Visit Provider Internal Medicine
DX: F07.81 Postconcussional syndrome (principal); S06.9XAA Unspecified intracranial injury with loss of consciousness status unknown, initial encounter; X58.XXXA Exposure to other specified factors, initial encounter
CPT/HCPCS: 70450

== ENCOUNTER 2025-03-14 13:45 | Outpatient (RCR) | payer OTHER, SELFPAY ==
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
--- NOTE | 2025-01-09 14:16 | ST-OP ANOTE ---
Physical, Occupational & Speech Therapy At [facility] Speech Therapy Note Pt did not arrive on time to therapy session, therefore, ST attempted to call pt at the phone number listed in this medical chart x3, however, all calls went to a voicemail box that has not been set up. Pt marked as a no show following 15 minutes. This is the pt's first no show.
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
== END 2025-05-24 13:49 | disposition home or self-care (01) ==
LOC: SP 13:45
PROVIDERS: Family Provider Internal Medicine; PCP Internal Medicine; Referring Provider Internal Medicine; Visit Provider Internal Medicine
DX: S06.9XAA Unspecified intracranial injury with loss of consciousness status unknown, initial encounter (principal); S06.6X9A Traumatic subarachnoid hemorrhage with loss of consciousness of unspecified duration, initial encounter
CPT/HCPCS: 92507; 96125

== ENCOUNTER 2025-04-25 13:16 | Emergency (ER) | payer OTHER, SELFPAY ==
[2025-04-25 13:24] VITALS: BP 149/96; PULSE 90; RESP 16; TEMP 36.7; O2SAT 99
--- NOTE | 2025-04-25 13:31 | DI.RAD.S_ITS ---
PROCEDURE: XR CHEST 1V INDICATIONS: Chest Pain TECHNIQUE: One view of the chest was acquired. COMPARISON: None. FINDINGS: Surgical changes and devices: None. Lungs and pleura: Lungs are clear. No pleural effusions or pneumothorax. Mediastinum: Mediastinal contours appear normal. Heart size is normal. Bones and chest wall: No suspicious bony lesions. Overlying soft tissues appear unremarkable. IMPRESSION: No acute cardiopulmonary pathology. Dictated by: Ulysses Henry M.D. on 04/25/2025 at 14:22 Approved by: Ulysses Henry M.D. on 04/25/2025 at 14:22
--- NOTE | 2025-04-25 13:34 | EKG_ITS ---
[facility] [address] [address] Test Date: 2025-04-25 Pat Name: Nazario Park Department: [facility] Room: Gender: Male Setter Up: KAMERON : 1990 Requested By: Order Number: [id number] Reading MD: Ramón Nguyen MD Measurements Intervals Douglas Rate: 80 P: 69 RI: 142 QRS: -20 QRSD: 144 T: 50 QT: 402 QTc: 463 Interpretive Statements Normal sinus rhythm Right bundle branch block NO PRIOR TRACING Electronically Signed On 04-25-2025 16:00:38 PDT by Ramón Nguyen MD
--- NOTE | 2025-04-25 13:54 | DI.CT.S_ITS ---
PROCEDURE: CT HEAD/BRAIN WO CON INDICATIONS: facial/numbness/seizure TECHNIQUE: Noncontrast 4.5 mm thick angled axial sections acquired from the foramen magnum to the vertex, with coronal and sagittal reformats. For radiation dose reduction, the following was used: automated exposure control, adjustment of mA and/or kV according to patient size. COMPARISON: [facility], CT, CT HEAD/BRAIN WO CON, 12/17/2024, 14:04. FINDINGS: Image quality: Diagnostic. CSF spaces: Basal cisterns are patent. No extra-axial fluid collections. Ventricles are normal in size and shape. Brain: No midline shift. No intracranial mass effect or hemorrhage. Mckeon- white matter interface is normal. Skull and face: Calvarium and visualized facial bones are intact, without suspicious lesions. Sinuses: Visualized sinuses and mastoids are clear. IMPRESSION: No acute intracranial pathology. Dictated by: Jhonathan Enriquez M.D. on 04/25/2025 at 15:28 Approved by: Jhonathan Enriquez M.D. on 04/25/2025 at 15:31
[2025-04-25 14:21] LABS: Add Manual Diff / Slide Review NO; Hematocrit 42.2 % (41-53); Hemoglobin 14.7 g/dL (13.5-17.5); Lymphocytes Absolute Auto 1500 /uL (1100-4500); Mean Corpuscular HGB Conc 34.8 % (30-36); Mean Corpuscular Hemoglobin 31.5 PG (26-34); Mean Corpuscular Volume 90.3 fL (80-100); Platelet Count 213 X10^3/uL (150-400)
[2025-04-25 14:26] LABS: INR 0.9 (0.9-1.3); Prothrombin Time 10.7 SECONDS (9.4-12.5)
[2025-04-25 14:28] LABS: PTT Partial Thromboplastin Tim 29 SECONDS (25.1-36.5)
[2025-04-25 14:33] LABS: Alanine Aminotransferase 28 IU/L (<50); Albumin 5.4 g/dL (3.5-5.0); Albumin Globulin Ratio 1.7 (1.0-2.8); Alkaline Phosphatase 47 U/L (38-126); Blood Urea Nitrogen 9 mg/dL (9-20); Calcium 10.2 mg/dL (8.4-10.2); Carbon Dioxide 26 mmol/L (22-32); Chloride 100 mmol/L (98-107); Creatine Kinase 202 U/L (55-170); Estimated Glomerular Filt Rate > 60 mL/min (>60); Globulin 3.1 g/dL (1.7-4.1); Glucose 104 mg/dL (70-99); HEMOLYSIS < 15 (0-50); Lipase 69 U/L (23-300); Magnesium 2.0 mg/dL (1.6-2.3); Potassium 3.8 mmol/L (3.4-5.1); Sodium 140 mmol/L (137-145); Total Protein 8.5 g/dL (6.3-8.2)
[2025-04-25 14:44] LABS: NT-proBNP (BNP-Adult 18+) < 20 pg/mL (<125); Troponin I < 0.012 ng/mL (0.01-0.034)
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
[2025-04-25 16:30] VITALS: BP 136/79; PULSE 77; RESP 17; O2SAT 98
== END 2025-04-25 17:14 | disposition home or self-care (01) ==
PROVIDERS: Emergency Provider Family Medicine; Family Provider Internal Medicine; PCP Internal Medicine
DX: R56.9 Unspecified convulsions (principal); S06.9XAD Unspecified intracranial injury with loss of consciousness status unknown, subsequent encounter; R51.9 Headache, unspecified; R41.0 Disorientation, unspecified; R42 Dizziness and giddiness; R41.3 Other amnesia; X58.XXXD Exposure to other specified factors, subsequent encounter
CPT/HCPCS: 36415; 70450; 71045; 80053; 82550; 83690; 83735; 83880; 84484; 85025; 85610; 85730; 93005; 99283; 99284